=== PATIENT | male | born 1955 | race Caucasian/White ===

== ENCOUNTER 2022-12-15 04:16 | Day surgery (SDC) | payer OTHER ==
[2022-12-12 14:59] VITALS: BMI 24.9
[2022-12-15 10:47] VITALS: TEMP 98
[2022-12-15 11:13] VITALS: RESP 17
[2022-12-15 11:31] VITALS: BP 133/66; PULSE 65
== END 2022-12-15 11:25 | disposition home or self-care (01) ==
LOC: JASU-ENDO 04:16
PROVIDERS: ATTEND Internal Medicine Gastroenterology
PROC: 0DJD8ZZ Inspection of Lower Intestinal Tract, Via Natural or Artificial Opening Endoscopic (ICD-10-PCS; principal; 2022-12-15 10:00)
DX: Z12.11 Encounter for screening for malignant neoplasm of colon (principal); K57.30 Diverticulosis of large intestine without perforation or abscess without bleeding; K64.8 Other hemorrhoids